=== PATIENT | male | born 1975 | race African-American/Black ===

== ENCOUNTER 2022-09-18 14:01 | Emergency (ER) | payer MEDICAID, SELFPAY ==
[2022-09-18 14:01] VITALS: BP 136/90; PULSE 111; RESP 14; TEMP 36.4; O2SAT 98; BMI 28.3
[2022-09-18 14:05] VITALS: BP 145/90; BP 151/91; PULSE 100; PULSE 99; RESP 18; O2SAT 97; O2SAT 98
--- NOTE | 2022-09-18 14:05 | EKG12_ITS ---
Test Reason : STROKE Blood Pressure : / mmHG Vent. Rate : 094 BPM Atrial Rate : 094 BPM P-R Int : 134 ms QRS Dur : 088 ms QT Int : 362 ms P-R-T Axes : 040 -72 045 degrees QTc Int : 452 ms Normal sinus rhythm Left anterior fascicular block Possible Lateral infarct , age undetermined Abnormal ECG Confirmed by LAUREN ARREOLA, RANDY ([id number]), book or script editor EDDIE HUNTLEY ([id number]) on 09/22/2022 10:12:13 AM Referred By: Confirmed By:RANDY AGUILAR MD
--- NOTE | 2022-09-18 14:05 | RAD_ITS ---
EXAM: XR CHEST, 1 VIEW CLINICAL INDICATION: Neuro deficit, acute, stroke suspected TECHNIQUE: Frontal view of the chest. COMPARISON: No relevant prior studies available. FINDINGS: LUNGS AND PLEURAL SPACES: Unremarkable. No consolidation or edema. No pneumothorax. No effusion. HEART: Unremarkable. Cardiac silhouette not enlarged. MEDIASTINUM: Central airways and mediastinal contour are unremarkable. BONES/JOINTS: Unremarkable. SOFT TISSUES: Unremarkable. RAD/Chest 1 View IMPRESSION: No radiographic evidence of acute cardiopulmonary disease. Electronically Signed: Xavier Thomas MD at 15:08 EDT ,
--- NOTE | 2022-09-18 14:05 | CT_ITS ---
We are attempting to reach an attending provider to discuss findings. An addendum with communication details will be sent when the communication is complete. STUDY: CT BRAIN WITHOUT CONTRAST REASON FOR EXAM: Male, 47 years old. Neuro deficit, acute, stroke suspected TECHNIQUE: Transaxial CT imaging of the brain was performed without administration of intravenous contrast material. Individualized dose optimization techniques were used for this CT. COMPARISON: None FINDINGS: Normal calvarium. Normal soft tissues. Normal size ventricles and extra-axial spaces for the patient''s age. Normal white matter tracts of the cerebral hemispheres. Normal basal ganglia and thalami. Normal brainstem. Normal cerebellum. There is no intracranial hemorrhage. There are no findings of an acute ischemic infarction. Normal visualized paranasal sinuses. ASPECTS 10 CT/STROKE Brain/Head without Cont IMPRESSION: There are no acute intracranial findings. Electronically Signed: Xavier Thomas MD at 14:29 EDT ,
--- NOTE | 2022-09-18 14:07 | EDS_ITS ---
HPI History of Present Illness Chief Complaint: Stroke Alert Narrative Narrative: Patient is a 47-year-old male who is presenting to the ER today with chief complaint of a headache this the right frontal discharge approximately 1 hour. Patient's had that this has gradually gotten worse over the past hour, he does not have a history of headaches or migraines. Patient also has been feeling lightheaded and dizzy since this morning. Patient does not believe he has any slurred speech or facial droop. Patient has no hard time using his arms or legs. It was initially thought by triage nurse that patient was having some slurred speech, so stroke alert was called to error on the side of caution. It then at the end of triage, triage nurse Tameka PARISI found out that patient was also up all night, he is also doing ice which patient states that his methamphetamines last night. Additional history will be obtained and further physical exam will be done, but initially patient does not appear to be having any strokelike signs or symptoms. Patient does have thick speech, he may be tired, but no obvious signs of stroke at this time besides questionable speech changes. Patient has no deficits to his arms or legs. Further HPI, patient stated that he just started using crystal meth 2 days ago again. Patient does not drink any alcohol. Patient does have a history of alcohol dependence and crystal meth dependence, patient has been sober for 5-1/2 months until 2 days ago. Patient has no good reason besides being around the wrong people that he started using again 2 days ago. He is not suicidal homicidal. Patient is drink no alcohol, is going to no alcohol withdrawal. Patient is not trying to hurt or kill himself. Patient does have right-sided frontal headache. Patient has no vision or hearing changes. Patient is also complaining of vertigo since this morning as well. Patient does not have a history of vertigo. Patient's headache was not the worse headache of her life, not sudden onset, not thunderclap in nature. Patient has no recent fall, trauma, no head injury. Patient is also requesting rehabilitation for crystal meth, he did start using 2 days ago. Patient lives at home with his sister. Patient is diabetic, does take medication for that and states he is compliant with this. [facility] Medical History (Updated 09/18/22 @ 16:[address] Fermin Pay, DO) Diabetes Methamphetamine abuse Home Medications insulin aspart U-100 100 unit/mL subcutaneous cartridge (Novolog PenFill U-100 Insulin aspart) See Protocol subcut TIDCM 09/18/22 [History Last Taken Unknown] insulin glargine 100 unit/mL (3 mL) subcutaneous pen (Lantus Solostar U-100 Insulin) 35 unit subcut DAILY 09/18/22 [History Last Taken Unknown] insulin glargine 100 unit/mL subcutaneous cartridge 25 unit subcut QHS 09/18/22 [History Last Taken Unknown] meclizine 25 mg tablet 25 mg PO 4X/DAY PRN PRN Dizziness #10 tabs 09/18/22 [Rx Last Taken Unknown] metoclopramide HCl 10 mg tablet 10 mg PO 4X/DAY PRN Headache #10 tabs 09/18/22 [Rx Last Taken Unknown] ondansetron 4 mg disintegrating tablet 4 mg PO Q8H PRN PRN Nausea #10 tabs 09/18/22 [Rx Last Taken Unknown] Allergy/AdvReac Type Severity Reaction Status Date / Time No Known Allergies Allergy Verified 09/18/22 14:04 Social History Smoking Status: Current every day smoker tobacco type: cigarettes ROS ROS ED ROS Narrative REVIEW OF SYSTEMS: Unless otherwise stated in this report the patient's positive and negative responses for review of systems for constitutional, eyes, ENT, cardiovascular, respiratory, gastrointestinal, neurological, , musculoskeletal, and integument systems and related systems to the presenting problem are either stated in the history of present illness or were not pertinent or were negative for the symptoms and/or complaints related to the presenting medical problem. EXAM Physical Exam Narrative Exam Narrative: Vital signs reviewed and patient is not hypoxic. General: The patient appears well and in no apparent distress. Patient is resting comfortably on cart. Not toxic, lethargic, or listless. Patient appears drowsy, somewhat sedated, denies any illicit drug use today, states that he did do ICE which is methamphetamines last evening. Skin: Warm, dry, no pallor noted. There is no rash noted. Head: Normocephalic, atraumatic Eye: Normal conjunctiva, no drainage, EOMI. PERRL. Ears, Nose, Mouth, and Throat: oral mucosa is moist. Nares patent. Mouth without vesicles. Cardiovascular: Regular Rate and Rhythm, no murmurs, gallops, or rubs Respiratory: Patient is in no distress, no accessory muscle use, lungs are clear to auscultation, no wheezing, rales or rhonchi Back: non-tender, no CVA tenderness bilaterally to percussion. NO CTLS midline or paraspinal tenderness to palpation. GI: Soft, no tenderness to palpation, no masses appreciated. No rebound, guarding, or rigidity noted. Musculoskeletal: The patient has full range of motion of all extremities and joints with no difficulty. Patient has no motor, no sensory deficits. Neurological: A&O x4, normal speech, no focal neurological deficits. NIH 0, patient does have thicker speech, but patient does not believe he has any acute speech changes. Psychiatric: Cooperative Const Vital Signs: 09/18/22 14:01 09/18/22 14:05 09/18/22 14:05 Temperature 97.6 F L Temperature Source Temporal Pulse Rate 111 H 99 100 Respiratory Rate 14 18 18 Blood Pressure 136/90 H 145/90 H 151/91 H Blood Pressure Mean 105 108 111 Pulse Ox 98 97 98 Oxygen Delivery Method Room Air Room Air Room Air 09/18/22 14:35 09/18/22 15:05 Temperature Temperature Source Pulse Rate 99 100 Respiratory Rate 18 22 H Blood Pressure 149/85 H 150/95 H Blood Pressure Mean 106 113 Pulse Ox 99 97 Oxygen Delivery Method Room Air Room Air MDM MDM MDM Narrative Medical decision making narrative: Patient's blood sugar was in the 380s, patient was given 2 L of IV fluid. Patient was given IV Toradol, IV Reglan and IV fluids to help with his headache. Patient potassium was 3.4, patient was given oral potassium to drink. Patient was given Antivert to help with vertigo. Patient says that he has been having intermittent ataxia, unsteady gait for years. Patient is also diabetic. Patient does have a PCP. Patient has not mentioned to his PCP or seen a neurologist for years of mild ataxia, unsteady gait, and chronic symptoms. Selma guerrero says that he is compliant for diabetic medication. Patient also was given resources to help with rehabilitation for methamphetamines. Patient cannot be admitted to [facility] for methamphetamine detox. Please see MONIQUE murrieta for consultation as well, she talked to patient and help get resources. Patient was also told to call his insurance company and speak to the mental health and behavioral health line and find out what resources are available in his [employer] network. Patient was calling [employer] to get his number and identification number to member services number because registration stated they cannot find his numbers as well. 1600 patient's headache is completely resolved, vertigo has completely resolved as well. Patient feels better after IV fluids. Patient's sugar is elevated, that has come down with IV fluids as well. Please see MONIQUE social sciences instructor/counselor notes as well. We are trying to get patient to a inpatient rehabilitation process today. Patient will be discharged officially from the emergency room, and will continue to help with patient's recovery. Patient is very thankful for help Lab Data Attestation: I reviewed the patient's lab results. Labs: Laboratory Results - last 24 hr 09/18/22 09/18/22 09/18/22 14:03 14:10 14:10 WBC 4.7 RBC 5.27 Hgb 15.2 Hct 45.6 MCV 86.5 MCH 28.8 MCHC 33.3 RDW Std Deviation 39.2 RDW Coeff of Brenna 12.3 Plt Count 170 MPV 12.4 H Immature Gran % (Auto) 0.000 Neut % (Auto) 44.4 L Lymph % (Auto) 40.3 [place] % (Auto) 8.6 Eos % (Auto) 5.4 H Baso % (Auto) 1.3 H Absolute Neuts (auto) 2.1 Absolute Lymphs (auto) 1.88 Nucleated RBC % 0 PT 12.8 INR 1.0 APTT 27.2 Sodium Potassium Chloride Carbon Dioxide Anion Gap BUN Creatinine Estim Creat Clear Calc Est GFR (MDRD) Af Amer Est GFR (MDRD) Non-Af BUN/Creatinine Ratio Glucose Calcium Troponin I High Sens POC Glucose 318 H 09/18/22 14:10 WBC RBC Hgb Hct MCV MCH MCHC RDW Std Deviation RDW Coeff of Brenna Plt Count MPV Immature Gran % (Auto) Neut % (Auto) Lymph % (Auto) [place] % (Auto) Eos % (Auto) Baso % (Auto) Absolute Neuts (auto) Absolute Lymphs (auto) Nucleated RBC % PT INR APTT Sodium 137 Potassium 3.4 L Chloride 102 Carbon Dioxide 27.0 Anion Gap 8 BUN 13 Creatinine 0.94 Estim Creat Clear Calc 104.34 Est GFR (MDRD) Af Amer 110 Est GFR (MDRD) Non-Af 91 BUN/Creatinine Ratio 13.9 Glucose 384 H Calcium 9.1 Troponin I High Sens 45 POC Glucose Radiography Chest X-Ray - ED: 2 View and Read by ED Physician (Chest x-ray shows no acute cardiopulmonary disease, no infiltrate, no effusion.) Diagnostic Testing: Clinical Impression(s) from Imaging Studies Brain CT 09/18/22 14:05 IMPRESSION: There are no acute intracranial findings. Electronically Signed: Xavier Thomas MD at 14:29 EDT , ADDENDUM: 09/18/22 1439 IMPRESSION: There are no acute intracranial findings. N.B. : The above Results were Read Back by Xavier Thomas MD to Fermin Mejia DO, and understanding confirmed on 09/18/2022 14:33:04 (ET). Electronically Signed: Xavier Thomas MD at 14:29 EDT , Chest X-Ray 09/18/22 14:05 IMPRESSION: No radiographic evidence of acute cardiopulmonary disease. Electronically Signed: Xavier Thomas MD at 15:08 EDT , EKG Initial EKG: Attestation: I personally reviewed and interpreted this EKG as follows: Comments: EKG interpretation. Normal sinus rhythm at 94 beats a minute. Left axis deviation. No acute ST elevation, no acute ectopy. QTc of 452. EKG reading left anterior fascicular block. Additional Tests and Interventions Additional Tests or Interventions: Patient's headache and vertigo has improved. Patient will be sent home with prescription to help with headache, given Reglan. Patient also be given prescription for Antivert. Patient is not suicidal homicidal. Patient was given resources and outlets that he can call to help with rehabilitation from methamphetamine use if patient still desires. Patient is not a risk to himself. Patient has functional decision-making capacity to be discharged. Patient lives with his sister. Patient has a PCP. Neurology was referred to the patient as well to follow-up with for his years of unsteady gait, mild ataxia, imbalance. Patient has a history of diabetes and illicit drug use as well. Discharge Plan Triage Chief Complaint: Stroke Alert ED Provider: Fermin Mejia Dx/Rx/DC Orders Clinical Impression: Hyperglycemia, Vertigo, Headache, Methamphetamine abuse Instructions: High Blood Sugar (Hyperglycemia), How to Check Your Blood Sugar, Addiction: Getting Help, Addiction: Your Treatment Options, Meth Abuse Addiction, ED Drug Abuse, ED Pain, Acute, Uncertain Cause, ED Vertigo, Unspecified Prescriptions: New meclizine [meclizine] 25 mg tablet 25 mg PO 4X/DAY PRN PRN (Reason: Dizziness) Qty: 10 0RF ondansetron [ondansetron] 4 mg tablet,disintegrating 4 mg PO Q8H PRN PRN (Reason: Nausea) Qty: 10 0RF metoclopramide HCl [metoclopramide HCl] 10 mg tablet 10 mg PO 4X/DAY PRN (Reason: Headache) Qty: 10 0RF Rx Instructions: PRN MAXWELL,N/V No Action insulin aspart U-100 [Novolog PenFill U-100 Insulin] 100 unit/mL Cartridge See Protocol SUBCUT TIDCM Protocol: 3. Sliding Scale Insulin Med Dosing Condition: 150-189 mg/dl = 1 unit Condition: 190-229 mg/dl = 2 units Condition: 230-269 mg/dl = 3 units Condition: 270-309 mg/dl = 4 units Condition: 310-349 mg/dl = 5 units Condition: 350-399 mg/dl = 6 units Condition: 400-449 mg/dl = 7 units Condition: Greater than 449 call physician Protocol Text: - Use for Total Daily Dose of Insulin 37-55 units - Obsese, infected, or steroid patients MEDIUM DOSING ALGORITHIM Lantus U-100 Insulin 100 unit/mL Cartridge 25 unit SUBCUT QHS insulin glargine [Lantus Solostar U-100 Insulin] 100 unit/mL (3 mL) Insulin Pen 35 unit SUBCUT DAILY Primary Care Provider: Arslan You Referrals: Arslan Yuo [Other] Graham Rai MD [Non-Staff -Ordering Privileges] - Activity Restrictions/Additional Instructions: Seek outpatient rehabilitation for methamphetamine abuse/dependence. Use Zofran as needed for nausea, use Reglan as needed for nausea or headaches, use meclizine as needed for vertigo if it returns. Disposition Disposition: Home, Self Care
--- NOTE | 2022-09-18 14:08 | CM.ED ---
Social Work Note Referral Source: Stroke Alert Referral Reason: emotional support SW responded to stroke alert, no family present, patient in CT. SW remains available if additional needs arise. Ethel Mondragon MSW, MAC
[2022-09-18 14:09] VITALS: BMI 28.3
[2022-09-18 14:22] LABS: Bedside Glucose 318 mg/dL (74-106)
[2022-09-18 14:26] LABS: Absolute Lymphocyte Count 1.88 X10^3/uL (0.83-4.51); Absolute Neutrophil Count 2.1 X10^3/uL (2.0-7.7); Basophil# 0.06 X10^3/uL; Basophil% 1.3 % (0-1); Eosinophil# 0.25 X10^3/uL; Eosinophils% 5.4 % (0-5); Hematocrit 45.6 % (40-54); Hemoglobin 15.2 g/dL (13.0-16.5); Lymphocyte # 1.88 X10^3/ul (0.83-4.51); Lymphocyte % 40.3 % (19-41); Mean Corp Hgb Conc 33.3 g/dL (32-36); Mean Corpuscular Hgb 28.8 pg (27.0-32.0); Mean Corpuscular Volume 86.5 fL (80-94); Mean Platelet Vol. 12.4 fl (6.2-12.0); Monocyte% 8.6 % (0-10); NRBC Flagged by Analyzer 0 % (0-5); Neutrophil # 2.08 X10^3/uL (2.7-7.7); Neutrophil % 44.4 % (47-70); Platelet Count 170 K/mm3 (150-450); RBC Distribution Width CV 12.3 % (11.6-14.6); RBC Distribution Width SD 39.2 fl (35.1-43.9); Red Blood Count 5.27 M/mm3 (4.6-6.2); White Blood Count 4.7 K/mm3 (4.4-11.0)
[2022-09-18 14:35] VITALS: BP 149/85; PULSE 99; RESP 18; O2SAT 99
[2022-09-18 14:39] LABS: Prothrombin Time (Protime)PT. 12.8 SECONDS (11.7-14.9)
[2022-09-18 14:40] LABS: Partial Thromboplast Time 27.2 Seconds (24.1-36.2)
[2022-09-18 14:47] LABS: Anion Gap 8 (5-15); BUN 13 mg/dL (7-18); BUN/Creat Ratio 13.9 RATIO (10-20); Calcium,Total 9.1 mg/dL (8.5-10.1); Chloride 102 mmol/L (98-107); Creatinine, Serum 0.94 mg/dL (0.70-1.30); EST Glomerular Filtration Rate 91 mL/min (>60); Est Glom Filt Rate - Afr Amer 110 mL/min (>60); Estimated Creatinine Clearance 104.34 ml/min; Glucose 384 mg/dL (74-106); Potassium 3.4 mmol/L (3.5-5.1); Sodium Level 137 mmol/L (136-145); Troponin-I HS 45 pg/mL (3.0-78.0)
[2022-09-18] MEDS: Ketorolac 15 MG/ML Vial IV (14:57)
[2022-09-18] MEDS: Metoclopramide 10 MG/2 ML Vial IV (14:57)
[2022-09-18 15:05] VITALS: BP 150/95; PULSE 100; RESP 22; O2SAT 97
--- NOTE | 2022-09-18 15:07 | ED.RN ---
D/C [facility] PER PROVIDER.
[2022-09-18] MEDS: Meclizine HCl 25 MG Tablet PO (15:27)
[2022-09-18] MEDS: Acetaminophen 325 MG Tablet 650 MG PO (15:48)
[2022-09-18] MEDS: Potassium Chloride Oral Soln 20 MEQ/15 ML UDC 40 MEQ PO (15:48)
[2022-09-18] MEDS: 0.9% Normal Saline 1,000 ML 999 ML IV (15:49)
--- NOTE | 2022-09-18 16:22 | EX.ED.DYSGE1 ---
HPI History of Present Illness Chief Complaint: Stroke Alert Detail of Chief Complaint: This is a duplicate chart that only has discharge information on it. [facility] Medical History (Updated 09/18/22 @ 16:[address] Fermin Mejia DO) Diabetes Methamphetamine abuse Home Medications insulin aspart U-100 100 unit/mL subcutaneous cartridge (Novolog PenFill U-100 Insulin aspart) See Protocol subcut TIDCM 09/18/22 [History Last Taken Unknown] insulin glargine 100 unit/mL (3 mL) subcutaneous pen (Lantus Solostar U-100 Insulin) 35 unit subcut DAILY 09/18/22 [History Last Taken Unknown] insulin glargine 100 unit/mL subcutaneous cartridge 25 unit subcut QHS 09/18/22 [History Last Taken Unknown] meclizine 25 mg tablet 25 mg PO 4X/DAY PRN PRN Dizziness #10 tabs 09/18/22 [Rx Last Taken Unknown] metoclopramide HCl 10 mg tablet 10 mg PO 4X/DAY PRN Headache #10 tabs 09/18/22 [Rx Last Taken Unknown] ondansetron 4 mg disintegrating tablet 4 mg PO Q8H PRN PRN Nausea #10 tabs 09/18/22 [Rx Last Taken Unknown] Allergy/AdvReac Type Severity Reaction Status Date / Time No Known Allergies Allergy Verified 09/18/22 14:04 Social History Smoking Status: Current every day smoker tobacco type: cigarettes EXAM Physical Exam Const Vital Signs: 09/18/22 14:01 09/18/22 14:05 09/18/22 14:05 Temperature 97.6 F L Temperature Source Temporal Pulse Rate 111 H 99 100 Respiratory Rate 14 18 18 Blood Pressure 136/90 H 145/90 H 151/91 H Blood Pressure Mean 105 108 111 Pulse Ox 98 97 98 Oxygen Delivery Method Room Air Room Air Room Air 09/18/22 14:35 09/18/22 15:05 Temperature Temperature Source Pulse Rate 99 100 Respiratory Rate 18 22 H Blood Pressure 149/85 H 150/95 H Blood Pressure Mean 106 113 Pulse Ox 99 97 Oxygen Delivery Method Room Air Room Air [facility] Lab Data Labs: Laboratory Results - last 24 hr 09/18/22 09/18/22 09/18/22 14:03 14:10 14:10 WBC 4.7 RBC 5.27 Hgb 15.2 Hct 45.6 MCV 86.5 MCH 28.8 MCHC 33.3 RDW Std Deviation 39.2 RDW Coeff of Brenna 12.3 Plt Count 170 MPV 12.4 H Immature Gran % (Auto) 0.000 Neut % (Auto) 44.4 L Lymph % (Auto) 40.3 Door % (Auto) 8.6 Eos % (Auto) 5.4 H Baso % (Auto) 1.3 H Absolute Neuts (auto) 2.1 Absolute Lymphs (auto) 1.88 Nucleated RBC % 0 PT 12.8 INR 1.0 APTT 27.2 Sodium Potassium Chloride Carbon Dioxide Anion Gap BUN Creatinine Estim Creat Clear Calc Est GFR (MDRD) Af Amer Est GFR (MDRD) Non-Af BUN/Creatinine Ratio Glucose Calcium Troponin I High Sens POC Glucose 318 H 09/18/22 14:10 WBC RBC Hgb Hct MCV MCH MCHC RDW Std Deviation RDW Coeff of Brenna Plt Count MPV Immature Gran % (Auto) Neut % (Auto) Lymph % (Auto) Door % (Auto) Eos % (Auto) Baso % (Auto) Absolute Neuts (auto) Absolute Lymphs (auto) Nucleated RBC % PT INR APTT Sodium 137 Potassium 3.4 L Chloride 102 Carbon Dioxide 27.0 Anion Gap 8 BUN 13 Creatinine 0.94 Estim Creat Clear Calc 104.34 Est GFR (MDRD) Af Amer 110 Est GFR (MDRD) Non-Af 91 BUN/Creatinine Ratio 13.9 Glucose 384 H Calcium 9.1 Troponin I High Sens 45 POC Glucose Radiography Diagnostic Testing: Clinical Impression(s) from Imaging Studies Brain CT 09/18/22 14:05 IMPRESSION: There are no acute intracranial findings. Electronically Signed: Xavier Thomas MD at 14:29 EDT , ADDENDUM: 09/18/22 7666 IMPRESSION: There are no acute intracranial findings. N.B. : The above Results were Read Back by Xavier Thomas MD to Fermin Mejia DO, and understanding confirmed on 09/18/2022 14:33:04 (ET). Electronically Signed: Xavier Thomas MD at 14:29 EDT , Chest X-Ray 09/18/22 14:05 IMPRESSION: No radiographic evidence of acute cardiopulmonary disease. Electronically Signed: Xavier Thomas MD at 15:08 EDT , Discharge Plan Triage Chief Complaint: Stroke Alert ED Provider: Fermin Mejia Dx/Rx/DC Orders Clinical Impression: Hyperglycemia, Vertigo, Headache, Methamphetamine abuse Instructions: High Blood Sugar (Hyperglycemia), How to Check Your Blood Sugar, Addiction: Getting Help, Addiction: Your Treatment Options, Meth Abuse Addiction, ED Drug Abuse, ED Pain, Acute, Uncertain Cause, ED Vertigo, Unspecified Prescriptions: New meclizine [meclizine] 25 mg tablet 25 mg PO 4X/DAY PRN PRN (Reason: Dizziness) Qty: 10 0RF ondansetron [ondansetron] 4 mg tablet,disintegrating 4 mg PO Q8H PRN PRN (Reason: Nausea) Qty: 10 0RF metoclopramide HCl [metoclopramide HCl] 10 mg tablet 10 mg PO 4X/DAY PRN (Reason: Headache) Qty: 10 0RF Rx Instructions: PRN MAXWELL,N/V No Action insulin aspart U-100 [Novolog PenFill U-100 Insulin] 100 unit/mL Cartridge See Protocol SUBCUT TIDCM Protocol: 3. Sliding Scale Insulin Med Dosing Condition: 150-189 mg/dl = 1 unit Condition: 190-229 mg/dl = 2 units Condition: 230-269 mg/dl = 3 units Condition: 270-309 mg/dl = 4 units Condition: 310-349 mg/dl = 5 units Condition: 350-399 mg/dl = 6 units Condition: 400-449 mg/dl = 7 units Condition: Greater than 449 call physician Protocol Text: - Use for Total Daily Dose of Insulin 37-55 units - Obsese, infected, or steroid patients MEDIUM DOSING ALGORITHIM Lantus U-100 Insulin 100 unit/mL Cartridge 25 unit SUBCUT QHS insulin glargine [Lantus Solostar U-100 Insulin] 100 unit/mL (3 mL) Insulin Pen 35 unit SUBCUT DAILY Primary Care Provider: Arslan You Referrals: Arslan You [Other] Graham Rai MD [Non-Staff -Ordering Privileges] - Activity Restrictions/Additional Instructions: Seek outpatient rehabilitation for methamphetamine abuse/dependence. Use Zofran as needed for nausea, use Reglan as needed for nausea or headaches, use meclizine as needed for vertigo if it returns. Disposition Disposition: Home, Self Care
[2022-09-18 17:09] VITALS: BP 141/84; PULSE 88; RESP 14; O2SAT 99
--- NOTE | 2022-09-18 17:26 | CM.ED ---
Social Work TONI spoke with MD Mejia regarding patient's interest in detox from meth. SW to meet with patient and explore options. SW met with patient and introduced herself and role as [facility] SW. Patient lying in bed and agreeable to talk with SW. SW inquired about recent events and interest in detox. Patient reports he is from [place] and wants to go to [facility] in [place] for detox. Patient reports meth use, was sober for years but recently relapsed and has no access to transportation. SW contacted patient's insurance, facility to facility transportation is not available. SW updated patient of limited transportation options and inquired if patient was option to other facilities, patient agreeable. TONI spoke with Addictions coordinator Lynn who reports [facility], [facility] and [facility] are residential facilities that provide transportation. TONI reviewed residential treatment options with patient, patient agreeable to contact [facility]. Patient completed phone intake for [facility]. [facility] will be [facility] with [facility] to provide transportation. TONI verified plan with [facility] staff, Bertha. TONI updated care team of plan. Plan: [employer] ambulette driver transporting patient to [facility] for residential treatment program in [place]. Ethel Mondragon [employer], MAC
== END 2022-09-18 17:10 | disposition home or self-care (01) ==
PROVIDERS: Emergency Provider Emergency Medicine; Visit Provider Emergency Medicine
DX: E11.65 Type 2 diabetes mellitus with hyperglycemia (principal); F15.10 Other stimulant abuse, uncomplicated; Z79.4 Long term (current) use of insulin; R51.9 Headache, unspecified; R42 Dizziness and giddiness; F17.210 Nicotine dependence, cigarettes, uncomplicated
CPT/HCPCS: 70450; 71045; 80048; 82962; 84484; 85025; 85610; 85730; 93005; 99285; J7030; A4216